=== PATIENT | female | born 1930 | race Caucasian/White ===

== ENCOUNTER 2021-01-29 16:13 | Emergency (ER) | payer MEDICARE ==
[~2021-01-29] VITALS: Ht 157.5 cm; Wt 92.3 kg
[~2021-01-29 16:13] MED LIST: AMLODIPINE BESYL5 MG PO; ARIMIDEX1 MG PO; BENICAR40 MG PO; COREG3.125 MG PO; COUMADIN2.5 MG PO; FUROSEMIDE20 MG PO; HYDRALAZINE HCL50 MG PO; HYDROCHLOROTHIA25 MG PO; LEVO-T100 MCG PO; MULTI-VITAMIN1 EACH PO; SERTRALINE HCL50 MG PO; TORSEMIDE5 MG PO; TRULICITY1.5 MG/0.5 SUB-Q; VALSARTAN160 MG PO
== END 2021-01-29 19:11 | disposition home or self-care (01) ==
LOC: ED 16:13
DX: U07.1 COVID-19 (principal); Z79.01 Long term (current) use of anticoagulants; Z79.899 Other long term (current) drug therapy
CPT/HCPCS: 99284-25; M0243; Q0244

== ENCOUNTER 2021-05-08 08:17 | Emergency (ER) | payer MEDICARE ==
[~2021-05-08] VITALS: Ht 157.5 cm; Wt 92.3 kg
[~2021-05-08 08:17] MED LIST changes: +WARFARIN SODIUM5 MG PO
--- NOTE | 2021-05-08 23:16 | EKG ---
[facility] [address] [facility] [place] [address] Signed Atrial fibrillation with slow ventricular response with premature ventricular or aberrantly conducted complexes Left axis deviation Nonspecific ST and T wave abnormality Abnormal ECG No previous ECGs available Confirmed by GAVIN ROMERO MD ([id number]) on 05/08/2021 11:15:49 PM Electronically Signed By: GAVIN ROMERO MD 05/08/21 2316 PATIENT NAME: CHARLEE CHAPPELL Electrocardiogram DATE OF : [birth year] PHYSICIAN: GAVIN ROMERO MD REPORT #: [id number] REPORT IS CONFIDENTIAL AND NOT TO BE RELEASED WITHOUT AUTHORIZATION
== END 2021-05-08 11:20 | disposition home or self-care (01) ==
LOC: ED 08:17
DX: I11.0 Hypertensive heart disease with heart failure (principal); I50.9 Heart failure, unspecified; Z20.822 Contact with and (suspected) exposure to COVID-19; I48.91 Unspecified atrial fibrillation; Z85.3 Personal history of malignant neoplasm of breast; Z79.899 Other long term (current) drug therapy; Z79.01 Long term (current) use of anticoagulants; Z79.890 Hormone replacement therapy
CPT/HCPCS: 71045; 80048; 83880; 84484; 85025; 85379; 93005; 93010; 96374; 99285-25; J1940; U0003

== ENCOUNTER 2022-03-22 11:35 | Inpatient (IN) | payer MEDICARE ==
[~2022-03-22] VITALS: Ht 157.5 cm; Wt 92.7 kg
[~2022-03-22 11:35] MED LIST changes: +TORSEMIDE10 MG PO
--- NOTE | 2022-03-22 14:10 | NUR ---
THIS RN TO ER TO RECEIVE REPORT AND RETRIVE PT. REPORT RECEIVED FROM JOHN BACON. TELEMETRY MONITORING PLACED. PT DENIES PAIN AND NASUEA. PT TRANSFERED TO MED/SURG BY THIS RN.
--- NOTE | 2022-03-22 14:42 | NUR ---
PT ARRIVED TO ROOM. PT TRANSFERED TO BED WITH 2 PERSON SLIDE SHEET/HOVER MAT ASSIST. PT DENIES PAIN AND NAUSEA. PT VERY SHORT OF BREATH WITH TRANSFER WITH RR UP TO 32-36. PT REMAINS ON 2L O2 BY NC WITH OXYGEN SATURATIONS ABOVE 94%. RR SLOWS TO 28 AFTER REST. ACCESSORY MUSCLE USE NOTED. PT HAS INCREASED SHORTNESS OF BREATH EVEN WITH DRINKING WATER. PT ALERT AND ORIENTED TO ALL. CMS INTACT. BMAT LEVEL 3 WITH FWW 2 PERSON ASSIST AND BED SIDE COMODE ONLY. LUNG SOUNDS COURSE IN BASES WITH EXIRATORY WHEEZES NOTED. OCCATIONAL COUGH NOTED. CONCRETE POURING SUPERVISOR SHOWS AFIB RYTHEM WITH HR IN THE 70'S. PT RESPORTS SHE DOES NOT FEEL SAFE AT HOME AND "I CAN'T TAKE CARE OF MYSELF." STATING SHE "MIGHT NEED SOME HELP." CASE MANAGEMENT CONSULT IN PLACE. PT RESTING IN BED. NO ADDITONAL NEEDS AT THIS TIME. CALL LIGHT WITHIN REACH. BED ALARM ON.
--- NOTE | 2022-03-22 15:24 | NUR ---
PT REPORTS NEED TO VOID. PT UP TO BEDSIDE COMODE WITH 2 PERSON ASSIST. PT VERY SHORT OF BREATH GETTING UP TO COMODE. RR UP TO 38, OXGYEN SATURATION MAINTAINS ABOVE 94%. GRUNTING NOTED, RETRACTIONS AND ACCESSORY MUSCLE USE NOTED. PT BACK TO BED WITH 2 PERSON ASSIST. HEAD OF BED ELEVATED 58 DEGEES. PT TAKES GREATER THAN 5 MINUTES TO RECOVER TO RR LESS THAN 30. RT CALLED FOR BREATHING TREATMENT. THIS RN REMAINS AT BEDSIDE FOR INTAKE ASSESSMENT.
--- NOTE | 2022-03-22 15:42 | NUR ---
RT TO BEDSIDE FOR BREATHING TREATMENT. PT RPEORTS HER BREATHING IS "BETTER." ACCESSORY MUSCLE USE CONTINUES. NO MORE RETRACTIONS NOTED. PT ORIENTED TO ROOM AND CALL LIGHT. COMB, TOOTHBRUSH, AND CHAPSTICK PROVIDED PER PT REQUEST. NO ADDIITONAL NEEDS AT THIS TIME. PT CONTIUES TO DENY PAIN AND NAUSEA. CALL LIGHT WITHIN REACH. BED RAILS UP. BED ALARM ON.
[2022-03-22] MEDS ORDERED: CLARITIN10 MG PO (16:42)
--- NOTE | 2022-03-22 16:42 | NUR ---
THIS RN TO ROOM TO CHECK ON PT. PT RESTING IN BED WITH HEAD OF BED ELEVATED TO 45 DEGREES. RESPIRATIONS EVEN AND LESS LABORED. MILD ACCESSORY MUSCLE USE NOTED. RR OF 24. PT REMAINS ON 2L O2 BY NC WITH OXGYEN SATURATION OF 98%. NO ADDITONAL NEEDS AT THIS TIME. CALL LIGHT WITHIN REACH. BED RAILS UP. BED ALARM ON.
--- NOTE | 2022-03-22 16:43 | NUR ---
MED REC COMPLETE
--- NOTE | 2022-03-22 17:07 | NUR ---
NEW ORDERS FROM DR. COON. THIS RN TO ROOM. TELEMETRY MONITORING DC'D. PT REQUESTS ASSISTANCE UP TO RESTROOM. 2 PERSON ASSIST UP TO BEDSIDE COMODE. PT UNSEADY, WOULD RECCOMDNE MEHUL STEADY IF ONLY ONE PERSON IS AVALIABLE TO ASSIST. PT WEANED TO ROOM AIR. PT DORPS TO 96% ON ROOM AIR WHILE GETTING UP. BREATHING BECOMES YET AGAIN VERY LABORED WITH RETRACTIONS AND RR 32-40. PT PLACED BACK ON 1L O2 BY NC. PT VOIDS AND HAS SMALL BOWEL MOVEMENT. BUSHRA CARE DONE. 2 PERSON ASSIST MARY CARMEN TO BED. PT RECOVERS TO 95% O2 ON 1L O2 BY NC. RR SLOWS TO 24. PT DENIES PAIN AND NAUSEA. NO ADDITIONAL REQUESTS OR COMPLAINTS. CALL LIGHT WITHIN REACH. BED RAILS UP. BED ALARM ON.
--- NOTE | 2022-03-22 17:28 | NUR ---
PATIENT IS ON ROOM AIR, OXYGEN SATS ARE 93-94%.
--- NOTE | 2022-03-22 18:27 | NUR ---
THIS RN TO ROOM TO CHECK ON PT. PT WORKING WITH TOOTH BRUSH FOR ORAL CARE. PT ASSISTED WITH REPOSITIONING IN BED AND BECOMES VERY SHORT OF BREATH WITH ACCESSORY MUSCLE USE AND RETRACTIONS, OXGYEN SATURATION REMAINS AT 94% ON ROOM AIR. PT TAKES 5-10 MINUTES TO RECOVER AND LOWER RESPIRATORY RATE TO 24. TEMPERATURE REASSESSED AND FOUND TO BE 98.3 ORALLY. PT DENIES PAIN AND NAUSEA. NO ADDITONAL REQUESTS OR COMPLAINTS. CALL LIGHT WITHIN REACH. BED ALARM ON. BED RAILS UP.
--- NOTE | 2022-03-22 18:34 | NUR ---
PT ADMITTED THIS SHIFT FOR RSV PNEUMONIA. PT UP WITH 2 PERSON ASSIST AND FWW TO COMODE, NEEDS MEHUL STEADY IF ONLY ONE PERSON IS AVALIABLE. TOLERATING 2G SODIUM DIET WITH MINIMAL APPITITE. TELEMETRY DC'D. PT REMAINS IN IRREGULAR RYTHEM. BLOOD PRESSURE ELEVATED WITH ORAL MEDICATION GIVEN. PT SEVERLY SHORT OF BREATH WITH ANY ACITIVITY INCLUDING RETRACTIONS, ACCESSORY MUSCLE USE, RR OF 30-40'S, AND ANXIETY. PT RECOVERS AFTER 5-10 MINUTES OF REST. PT WEANED TO ROOM AIR THIS SHIFT. TOLERATES WHILE RESTING, CONTINUES TO DESATURATE WITH ANY ACTIVITY. PT VOIDING QUANITTY SUFFICIENT, IV LASIX GIVEN. PT USES CALL LIGHT OCCATIONALLY, BED ALARM FOR SAFETY.
--- NOTE | 2022-03-22 19:15 | NUR ---
REPORT RECEIVED FROM DAY SHIFT RN. PT LYING IN BED RESTING WITH EYES CLOSED. RESPIRATIONS EVEN. BED ALARM FOR SAFETY. CALL LIGHT IN REACH.
--- NOTE | 2022-03-22 20:13 | NUR ---
PT. REQUESTED ASSISTANCE TO BSC. THIS DISPLAY AND BANNER DESIGNER AND RN ASSITED PT WITH TRANSFER. PT. TRANSFERRED BACK TO BED SUCCESSFULLY. PT. VITALS AND I/O CHARTED. CALL LIGHT LEFT WITHIN REACH. FRESH ICE WATER PROVIDED. NO OTHER IMMEDIATE NEEDS AT THIS TIME.
--- NOTE | 2022-03-22 21:29 | NUR ---
EVENING ASSESSMENT COMPLETE. SCHEDULED MEDS ADMIN PER EMAR. PT REPORTS CHEST/RIB PAIN 2/10 FROM COUGH. PRN FOR PAIN ADMIN. PT DENIES SOB AT REST. SpO2 MID 90'S ON RA WHILE AT REST. DENIES CHEST PAIN. ASSSITED TO REPOSITION IN BED. PT DENIES QUESTIONS OR CONCERNS. CALL LIGHT IN REACH. BED ALARM FOR SAFETY.
--- NOTE | 2022-03-22 22:05 | NUR ---
PT. CALLED NURSES STATION STATING THEY ARE COUGHING VERY HARD. AFTER CHECKING ON PT. THEY REQUESTED SOMETHING FOR THE COUGH. PT NURSE NOTIFIED IMMEDIATELY. NO OTHER NEEDS AT THIS TIME.
--- NOTE | 2022-03-22 22:17 | NUR ---
CALL LIGHT ANSWERED. PT REPORTS HAVING FALLEN ASLEEP ON HER BACK WHICH CAUSED MUCUS TO GET STUCK IN HER THROAT RESULTING IN A "COUGHING FIT" WHERE SHE FELT LIKE SHE COULD NOT CATCH HER BREATH. SPOT CHECK SpO2 MID 80'S ON RA. RESPIRATIONS 30'S. PT PLACED ON 2L/NC AND QUICKLY RECOVERED TO HIGH 90'S. ASSISTED PT TO REPOSITION TO SIDE PER REQUEST. RESPIRATIONS 22 AFTER PT ABLE TO RELAX. PT REQUESTING PRN FOR COUGH. DR. COON NOTIFIED. NEW ORDERS RECEIVED. PRN FOR COUGH ADMIN PER EMAR. PT RESTING ON LEFT SIDE AT THIS TIME. NO FURTHER NEEDS.
--- NOTE | 2022-03-22 23:08 | NUR ---
PT RESTING ON LEFT SIDE WITH EYES CLOSED. RESPIRATIONS EVEN. CALL LIGHT IN REACH.
--- NOTE | 2022-03-23 01:45 | NUR ---
CALL LIGHT ANSWERED. PT REPORTS COUGHING AND DIFFICULTY BREATHING. ASSISTED TO REPOSITION. HOB ELEVATED. SpO2 MID 90'S WITH 2L/NC IN PLACE. RR 28-32. RETRACTIONS NOTED. PT TRYING TO COUGH UP PHLEGM. REPORTS SHE FEELS "PANICKY WAKING UP IN A STRANGE ROOM" AND NOT BEING ABLE TO CLEAR PHLEGM. PT ABLE TO EXPRESS X 3 BROWN COLORED SPUTUM AFTER BREATHING TX AND COUGH SYRUP. THIS RN SPENT ABOUT 30 MIN IN ROOM COMFORTING AND REASSURING PT. PT THANKFUL FOR CARES. RESPIRATIONS DOWN TO 20-22. SLIGHT RETRACTIONS STILL NOTED. 2L/NC IN PLACE. SpO2 HIGH 90'S. PT LEFT RESTING ON BACK WITH BED IN CHAIR POSITION. CURTAINS OPEN SO PT CAN SEE STAFF. DENIES FURTHER NEEDS. BED ALARM FOR SAFETY. CALL LIGHT IN REACH.
--- NOTE | 2022-03-23 03:36 | NUR ---
PT RESTING WITH EYES CLOSED. HOB ELEVATED. RESPRATIONS EVEN. CALL LIGHT IN REACH.
--- NOTE | 2022-03-23 05:50 | NUR ---
CALL LIGHT ANSWERED. PT REPORTS COUGHING AND DIFFICULTY BREATHING. PT ON 2L/NC. SpO2 HIGH 90'S. RESPIRATIONS LOW 30'S. RETRACTIONS NOTED. PT REPORTS SHE "FEELS PANICKY" WHEN SHE STARTS COUGHING AND "CAN'T CATCH MY BREATH." PT REASSURED. 2PA TO REPOSITION IN BED WITH HOB ELEVATED. ENCOURAGED PT TO TAKE SLOW DEEP BREATHS. PT REPORTS IMPROVEMENT IN BREATHING. PRN FOR COUGH AND MORNING MEDS ADMIN PER EMAR. PT INCONTINENT OF LARGE AMOUNT OF URINE. BUSHRA CARE DONE BY STAFF. CLEAN BRIEF IN PLACE. PT REPOSITIONED TO SITTING POSITION IN BED. REPORTS SHE IS COMFORTABLE AT THIS TIME. OXYGEN TITRATED TO 1L/NC WITH SATS IN THE MID 90'S. LIGHTS ON AND CURTAIN OPEN PER PT REQUEST. BED ALARM FOR SAFETY. CALL LIGHT IN REACH.
--- NOTE | 2022-03-23 09:36 | NUR ---
IN FOR MORNING ASSESSMENT. PATIENT AWAKE IN BED, A&OX4. PATIENT REPORTS SHE IS SHORT OF BREATH. PT'S BED PLACED TO [facility] [place]. PATIENT'S SP02 READING IS CURRENTLY 93% ON 2L OXYGEN. PATIENT REPORTS HER SHORTNESS OF BREATH HAS IMPROVED SLIGHTLY SINCE YESTERDAY. PT HAS A NOTABLE PRODUCTIVE COUGH. RR 30/MIN, LABORED. PATIENT PROVIDED WITH MORNING MEDICATIONS WELL PRN TYLENOL 650MG PO AND TESSALON PERLES 100MG PO FOR COUGH/RIB PAIN. PATIENT'S BREAKFAST TO ROOM, PT REPORTS BEING HUNGRY AND EAGER TO EAT THIS AM. ENCOURAGED PATIENT TO GET UP IN CHAIR, SHE DECLINES AT THIS TIME REPORTING SHE IS "TOO WEAK". FRESH WATER AT BEDSIDE. PATIENT DENIES FURTHER NEEDS, PERSONAL SUPPLIES AND CALL LIGHT WITHIN REACH.
--- NOTE | 2022-03-23 12:00 | NUR ---
SITTING UP IN BED.PATIENT LIVES WITH SON AND DAUGHTER.FAMILY IS REQUESTING HELP WITH PATIENTS ADLS WHEN DISCHARGED. HAND OUT ON HOW TO HIRE A CAREGIVER WAS GIVEN TO PATIENT.
--- NOTE | 2022-03-23 12:40 | NUR ---
Admin Robitussin AC 5ML for reports of cough.
--- NOTE | 2022-03-23 15:14 | NUR ---
THIS TITLE SEARCHER IN TO DO VITALS AND I&O'S. PATIENT SAID SHE HAD VOIDED TWICE IN HER ATTENDS. THIS TITLE SEARCHER AND TITLE SEARCHER HECTOR STOOD PATIENT AT BED SIDE WITH A FWW TO CHANGE ATTENDS, DO BUSHRA CARE, AND CHANGE LINENS. PATIENT DID VERY WELL WITH 1PA AND MAINTAINED AN O2 LEVEL BETWEEN 96% AND 91% ON 1L OF OXYGEN. DR. COON IN ROOM TO TALK TO PATIENT WHILE SHE IS SITTING ON EDGE OF BED. PATIENT NOW BACK TO LAYING IN BED RESTING. CALL LIGHT IN REACH. NO FURTHER NEEDS AT THIS TIME.
--- NOTE | 2022-03-23 15:27 | NUR ---
AFTER GETTING IN BED, PATIENT DECIDED SHE WANTED TO SIT IN CHAIR. PATIENT TRANSFERED TO CHAIR, 1PA FWW. PATIENT DID VERY WELL WITH VERY LITTLE ASSIST. PATIENT SITTING UP IN CHAIR AT THIS TIME AND STATES "I FEEL SO MUCH BETTER BEING UP" CALL LIGHT IN REACH. NO FURTHER NEEDS AT THIS TIME.
--- NOTE | 2022-03-23 16:01 | NUR ---
PATIENT GIVEN AFTERNOON MEDICATION, HOT TEA WITH LEMON AND HONEY PROVIDED FOR COUGH. IMAGING IN TO TAKE PATIENT FOR CHEST XRAY.
--- NOTE | 2022-03-23 19:31 | NUR ---
Received report from offgoing shift, hourly rounding initiated.
--- NOTE | 2022-03-23 20:40 | NUR ---
CALL LIGHT ANSWERED, CURTAIN CLOSED PER pt REQUEST. SHORT TIME AFTER, pt CALLED AGAIN ASKING FOR TV REMOTE IT WAS "LOST IN BED". pt INSTRUCTED THAT PRIMARY RN WILL COME AND ASSIST WITH EVENING MED PASS AND ASSESSMENT, NO ADDITIONAL NEEDS.
--- NOTE | 2022-03-23 21:17 | NUR ---
ASSISTED pt WITH FINDING BED CONTROL WHICH WAS FOUND AT BEDSIDE IN REACH OF pt. CALL LIGHT, REMOTE CONTROL, AND BED CONTROL ALL WITHIN REACH, pt PROVIDED WITH THERAPEUTIC COMMUNICATION pt CAN BE ANXIOUS AT TIMES. NASAL CANNULA OUT OF NARES, REPOSITIONED AND NOW IN PLACE, 0.5LNC. pt SPOT CHECKED, SPO2 MID TO UPPER 90'S, HR 80'S. pt APPRECIATIVE OF CARES AND IS EDUCATED THAT PRIMARY RN KRISTINA WILL BE IN ROOM FOR MED PASS AND WILL BRING IN SOMETHING FOR A SORE THROAT PER pt REQUEST, CALL LIGHT IN REACH.
--- NOTE | 2022-03-23 22:41 | NUR ---
HOURLY ROUNDING COMPLETED, IN ROOM FOR ASSESSMENT, MEDICATION ADMINISTRATION
--- NOTE | 2022-03-24 03:03 | NUR ---
HOURLY ROUNDING - PT FOUND TO BE STRIPPED OF CLOTHING, STATING IT WAS "TOO HOT" IN THE ROOM. PT 02 VALUE CHECKED, FOUND TO BE 78 INITIALLY, PT REPOSITIONED, O2 TITRATED TO 2L NC AND HOB ELEVATED. PT 02 IMPROVED TO 95, REQUESTING RT FOR NEBULIZER TREATMENT
--- NOTE | 2022-03-24 06:18 | NUR ---
Pt calm and cooperative, able to make needs known. Pt shows signs of anxiety but is redirectable without incident, practicing deep breathing techniques and using "flutter" device to aid in breathing. Pt had nebulizer treatment x1 during the night to good effect. Pt medication compliant.
--- NOTE | 2022-03-24 07:25 | NUR ---
RECIEVED SHIFT REPORT. PT RESTING IN BED, CALL LIGHT WITHIN REACH
--- NOTE | 2022-03-24 07:40 | NUR ---
Reviewed pts chart. Faxed face sheet, H&P, progress notes, PT notes, RSV test to MICHAEL at [facility].
--- NOTE | 2022-03-24 08:33 | NUR ---
MORNING ASSESSMENT COMPLETE. PT IN RECLINER. DENIES PAIN AND NAUSEA. LUNG SOUNDS COURSE BILAT IN LOWER BASES, EXP. WHEEZE BILAT UPPER. REPRODUCTIVE COUGH WITH YELLOW SPUTUM. PT REINFORCED TO USE VIBRATHERAPY DEVICE. NO FURTHER NEEDS AT THIS TIME. CALL LIGHT WITHIN REACH.
--- NOTE | 2022-03-24 09:12 | NUR ---
PT sitting in chair after breakfast. Assisted PT to BSC then back to chair. Call light is within reach, PT has no other needs at this time.
--- NOTE | 2022-03-24 10:19 | NUR ---
PT is sitting in chair after breakfast. Vitals and I/O have been documented. Provided PT with fresh ice water. Call light is within reach, PT has no other needs at this time.
--- NOTE | 2022-03-24 14:28 | NUR ---
PT is sitting in chair. Vitals and I/O have been documented. I assisted PT to BSC and then back into chair. provided fresh ice water to PT, call light is within reach, PT has no other needs at this time.
--- NOTE | 2022-03-24 15:00 | NUR ---
Received a call from pts Vadim RUIZ. He states he has spoken with pt and she would like to go to a SNF. Let him know I was notified of they by Dr. Boyd after he spoke with pt today. I have sent her chart to [facility] and I am waiting to hear if they have a bed. If they do not, I will attempt to find the next closest. Discussed SNFs in the closest 4 towns. He requests I seek the closest to [place], but go wherever we can get a bed. He states pt lives in their downstairs and is needing increased help. Feels pt would benefit from therapy.
--- NOTE | 2022-03-24 16:00 | NUR ---
Spoke with Georgie. UPdated I have spoken with Vadim and Dr. Boyd. I have sent her chart to [facility] and I am waiting to hear if they have a bed. Also let her know I may have check SNFs farther away. She asks if repeatedly if she is leaving [facility] and I let her know it may be on the weekend of next week. It will depend on bed availability.
--- NOTE | 2022-03-24 16:30 | NUR ---
AFTERNOON ASSESSMENT COMPLETE. PT COMPLAINS OF RIGHT SIDE SORE THROAT, BUT REFUSES PRN MEDICATION. STATES "IT MAKES ME FEEL FUNNY, AND I CANT THINK STRAIGHT". LUNG SOUNDS COURSE BILAT IN LOWER BASES AND REQUESTED A NEB TREATMENT. PRODUCTIVE COUGH WITHOUT SPUTUM. DENIES ANY FURTHER NEEDS. IVF LR RUNNING AT 500 ML/HR. CALL LIGHT WITHIN REACH.
--- NOTE | 2022-03-24 16:39 | NUR ---
Received a text from . He is awaiting a call from [facility] as they do not have a policy for RSV. He will get back to us tomorrow.
--- NOTE | 2022-03-24 19:20 | NUR ---
Hourly rounding initiated, received report from offgoing shift.
--- NOTE | 2022-03-24 19:23 | EKG ---
[facility] [address] [facility] [place] [address] Signed Atrial fibrillation Nonspecific ST and T wave abnormality Abnormal ECG When compared with ECG of 08-MAY-2021 09:09, Nonspecific T wave abnormality has replaced inverted T waves in Inferior leads Nonspecific T wave abnormality, worse in Lateral leads Confirmed by JULISSA COON MD ([id number]) on 03/24/2022 7:22:56 PM Electronically Signed By: JULISSA COON MD 03/24/221922 PATIENT NAME: CHAPPELLREBEKAH Electrocardiogram DATE OF : [birth year] PHYSICIAN: JULISSA COON MD REPORT #: [id number] REPORT IS CONFIDENTIAL AND NOT TO BE RELEASED WITHOUT AUTHORIZATION
--- NOTE | 2022-03-24 23:04 | NUR ---
HOURLY ROUNDING, VS, ASSESSMENT - PT VS BP100/58 WITH PULSE 57-61/MIN. MD NOTIFIED DUE TO HOLDING BP MEDICATION. MD ORDERED ORTHOSTATIC VITAL SIGNS TO BE TAKEN. UPON COMPLETION MD ORDERED BOLUS OF LR AND RATE CHANGE ON CONTINUOUS. (SEE MAR)
--- NOTE | 2022-03-25 01:27 | NUR ---
hourly rounding, changed IV fluids
--- NOTE | 2022-03-25 03:21 | NUR ---
hourly rounding completed. Pt up to commode, minimal assistance required, Pt repositioned in bed
--- NOTE | 2022-03-25 04:47 | NUR ---
Hourly rounding - increased temperature in room at Pt request
--- NOTE | 2022-03-25 06:31 | NUR ---
Pt was calm and cooperative, able to make needs known. Pt had multiple attempts to urinate, no adequate output. Pt received bolus of LR 500ml, increased LR continuous to 125ml/hr fom 85ml/hr per MD order. Pt slept majority of the night, was medication compliant.
--- NOTE | 2022-03-25 06:41 | NUR ---
Pt output insufficient at 200ml for shift should have been closer to 523. MD notified, nor new orders at this time.
--- NOTE | 2022-03-25 07:15 | NUR ---
receieved shift report. pt in recliner, call light within reach.
--- NOTE | 2022-03-25 09:09 | NUR ---
MORNING ASSESSMENT COMPLETE. PT IN RECLINER ON 2L NC SPO2 100%, TITRATED TO RA. LUNG SOUNDS COURSE IN ALL LOBES. PRODUCTIVE WITHOUT SPUTUM. PT REINFORCED TO USE THE VIBRAPEP DEVICE. PT TRANSFERRED TO [facility]. SBA, FWW. SPO2 MAINTAINED 96% ON RA. ONCE RETURNED TO CHAIR SPO2 91% WITH DEEP BREATHING ENCOURAGED PT SPO2 INCREASED TO 98%. DENIES PAIN. CALLL LIGHT WITHIN REACH.
--- NOTE | 2022-03-25 09:11 | NUR ---
RECVD TEXT FROM JASON RN STATING THAT MICHAEL FROM [facility] WILL TURN THE PATIENTS CHART OVER TO NURSING FOR REVIEW. MICHAEL STATES THAT THEY WILL BE FOLLOWING THE 7 DAY QUARANTINE SO THEY PATIENT WOULD NEED TO REMAIN IN THE HOSPITAL UNTIL MONDAY.
--- NOTE | 2022-03-25 09:24 | NUR ---
PT FU MADE WITH VLADIMIR DOAN DUE TO DR. PHILLIPS NO LONGER PRACTICING AT THEIR OFFICE.
--- NOTE | 2022-03-25 11:20 | NUR ---
RECVD CALL BACK FROM BRYANT AT [facility] REQUESTING FURTHER DOCUMENTATION FOR POSSIBEL PLACEMENT. BRYANT STATES PATIENTS CHART WILL BE SENT TO THEIR ADMINISTRATION FOR REVIEW WHEN RECVD. CHART FAXED.
--- NOTE | 2022-03-25 11:29 | NUR ---
PATIENT IS SITTING IN CHAIR WATHCHING TV.THE PLAN OF CARE IS FOR [facility] PLACEMENT FOR REHAB. FAMILY IS IN AGREEMENT ON THIS CHOICE AT DISCHARGE.
--- NOTE | 2022-03-25 14:40 | NUR ---
PATIENT IN CHAIR AFTER MEAL. VITALS COMPLETED BY NURSES JOSÉ MIGUEL/CHATA. I/O'S COMPLETED BY THIS PHYSICAL EDUCATION SPECIALIST. PT HAS NO NEEDS AT THIS TIME. CALL LIGHT WITHIN REACH.
--- NOTE | 2022-03-25 15:19 | NUR ---
RECVD MESSAGE FROM MICHAEL AT [facility]. PATIENT HAS BEEN ACCEPTED TO [facility] AT THIS TIME AND THEY ARE AWAITING PRIOR AUTH FROM [place]. THEY PLAN TO ACCEPT HER ON MONDAY. SHORTLY AFTER RECVD CALL FROM BRYANT AT [facility], PATIENT HAS BEEN ACEEPTED AND APPROVED. IN TO SPEAK WITH THE PATIENT TO REVIEW HER PLACEMENT ACCEPTANCE. PATIENT WISH TO GO TO [facility] SHE WILL BE CLOSER TO FAMILY. CALL PATIENT SON IN LAW MICHAEL TO UPDATE THAT PATIENT WILL HOPEFULLY DISCHARGE TO [facility] ON MONDAY IF STABLE. NO CONCERNS OR QUESTIONS FROM THE PATIENT OR MICHAEL. SKYE RN UPDATED.
--- NOTE | 2022-03-25 15:30 | NUR ---
AFTERNOON ASSESSMENT COMPLETE. CURRENTLY ON ROOM AIR, SPO2 96%. WHEEZES HEARD BILAT UPPER LOBES, COURSE BILAT LOWER. CALLED RT FOR NEB TREATMENT. PT TRANSFERRED TO BED, SOB, SPO2 94% ON RA. PT ENCOURAGED TO TAKE DEEP BREATHS SPO2 INCREASED TO 98%. DENIES FURTHER NEEDS. STATES PAIN IN THE LEFT LOWER QUADRANT AND STATES FROM COUGHING, TOLERABLE. CALL LIGHT WITHIN REACH.
--- NOTE | 2022-03-25 19:18 | NUR ---
Hourly rounding initiated, received report from offgoing shift.
--- NOTE | 2022-03-25 21:45 | NUR ---
Hourly rounding -- pt assisted with gown and linen change due to blood on linens from earlier IV infiltration. Pt assisted with repositioning, assessment complete
--- NOTE | 2022-03-25 22:56 | NUR ---
hourly rounding, patient assisted with repositioning.
--- NOTE | 2022-03-26 01:24 | NUR ---
Pt exhibiting signs of respiratory distress, Crackles found throughout all lobes. Pt still not having any urinary output. Contacted MD and D/C'd IV fluids, inserted ashby catheter and administered 20mg IV lasix per MD order. Initial return 150ml, amarilys and clear.
--- NOTE | 2022-03-26 03:00 | NUR ---
In pt room for rounding - pt self-removed ashby catheter, balloon intact. Pt reported no pain, states she feels better without the catheter. Pt attempted to urinate at commode with no output, when cleaning noted trace amounts of blood on cleaning cloth. pt placed into bed without any further incident, brief in place
--- NOTE | 2022-03-26 03:23 | NUR ---
HOURLY ROUNDING - PT ASSISTED TO COMMODE, BACK TO BED WITH NO INCIDENT.
--- NOTE | 2022-03-26 03:25 | NUR ---
Pt exhibiting signs of forgetfulness. Pt is not sure where she is at, does not remember conversation had about interventions done, for example stating she did not a catheter was going to be placed, that she was in a hospital. Pt needing frequent reminders regarding where she is, what her oxygen tubing is for, that she needs to call the nurses station when it is time to use the commode.
--- NOTE | 2022-03-26 05:17 | NUR ---
HOURLY ROUNDING - PT UP TO SIDE OF BED, REQUESTED TOILETING. PT ASSISTED TO COMMODE, BACK TO BED WITHOUT INCIDENCE.
--- NOTE | 2022-03-26 07:05 | NUR ---
recieved shift report. resting in bed, call light within reach.
--- NOTE | 2022-03-26 08:34 | NUR ---
MORNING ASSESSMENT COMPLETE. PT TRANSFERRED TO COMMODE SBA, FWW. CRACKLES HEARD BILAT LOWER LOBES, COURSE BILAT UPPER. COUGH IS NONPRODUCTIVE, AND MOIST. ENCOURAGED TO USE VIBRAPEP. ON 1L NC SPO2 93%. BREATHING IRREGULAR, LABORED, TACHYPENIC, RR 22. COMPLAINS OF SORE THOAT AND GIVEN PRN CHLORASEPTIC CEPACOL. WEIGHED PT 92.7KG (BED). BREATHING TREATMENT ADMINISTERED BY RT. CALL LIGHT WITHIN REACH. DENIES FURTHER NEEDS.
--- NOTE | 2022-03-26 08:35 | NUR ---
PATIENT UP IN CHAIR THIS AM. NURSES DAISY AND CHATA HELPED PATIENT. CALL LIGHT WITHIN REACH.
--- NOTE | 2022-03-26 10:27 | NUR ---
IN ROOM GIVING MEDS. PT ENCOURAGED TO USE VIBRAPEP. CALL LIGHT WITHIN USE. DENIES FUTHER NEEDS.
--- NOTE | 2022-03-26 14:10 | NUR ---
PT WAVED NURSE DOWN WHEN WALKING BY ROOM. NEEDS TO USE RESTROOM. AMBLUATED WITH FWW STAND BY RAYMOND. PT DID HAVE SOB AFTER GETTING TO BATHROOM. UNABLE TO VOID. AMBULATED BACK TO CHAIR STILL SOB. O2 AT 1L NC SATURATIONS 93%. ENGOURAGED WOUGHING AND DEEP BREATHING.
--- NOTE | 2022-03-26 14:30 | NUR ---
PATIENT IN CHAIR AFTER MEAL. VITALS AND I/O'S COMPLETED. PT HAS NO OTHER NEEDS AT THIS TIME. CALL LIGHT WITHIN REACH.
--- NOTE | 2022-03-26 15:36 | NUR ---
AFTERNOON ASSESSEMENT COMPLETE. PT DENIES PAIN AT THIS TIME. LUNG SOUNDS COURSE BILAT IN ALL LOBES. PT CONTINUES TO HAVE A NONPRODUCTIVE MOIST COUGH. SPO2 99% ON 1.5L NC, RR 18. CALL LIGHT WITHIN REACH. BED ALARM ON. DENIES FURTHER NEEDS.
--- NOTE | 2022-03-26 18:04 | NUR ---
PATIENT IN BED AFTER MEAL. VITALS AND I/O'D COMPLETED. PT HAS NO OTHER NEEDS AT THIS TIME. BED ALARM SET. CALL LIGHT WITHIN REACH.
--- NOTE | 2022-03-26 21:35 | NUR ---
PT IS LAYING IN BED, VITALS AND I/O HAVE BEEN DOCUMENTED. FRESH ICE WATER WAS PROVIDED TO PT, CALL LIGHT IS WITHIN REACH. PT HAS NO OTHER NEEDS AT THIS TIME.
--- NOTE | 2022-03-26 22:20 | NUR ---
PT APPEARS TO BE SLEEPING AT THIS TIME, O2 INPLACE AND REMAINS AT 1.5L'S VIA NC AT THIS TIME. BED ALARM ON AND SIDE RAILS UP X 3
--- NOTE | 2022-03-26 23:49 | NUR ---
PT UP TO BEDSIDE COMMODE VOIDED AND BACK TO BED, SITTING UP USING IS AT THIS TIME. CONTIOUES TO BE WHEEZING, BUT COUGHING LESS. SITTING UP DRINKING SOME JUICE AND COMBING HER HAIR. O2 REMAINS AT 2LS.
--- NOTE | 2022-03-27 01:03 | NUR ---
REPORT FROM CHANCE LOEPZ, WHITE BOARD UPDATED, PT ON NC1.5L, IV SL, READY TO SLEEP, LIGHTS DIMMED, CALL LIGHT IN REACH.
--- NOTE | 2022-03-27 03:00 | NUR ---
pt coughing and sob, anxious - this rn in to pt room to bedside and enc. slow breathing and pursed lip breathing. pt resp slowed and she relaxed with rn coaching, sats 96% on 1.5L nc - rt called for tx.
--- NOTE | 2022-03-27 07:18 | NUR ---
RECIEVED SHIFT REPORT. RESTING IN BED, CALL LIGHT WITHIN REACH.
--- NOTE | 2022-03-27 09:06 | NUR ---
MORNING ASSESSMENT COMPLETE. PT TRANSFERRED TO CHAIR, SBA, FWW W/O DIFFICULTY. PT ON 1.5 L NC SPO2 100%. TITRATED TO 1L NC. LUNG SOUNDS BILAT UPPER LOBES WHEEZE AND COURSE, BILAT LOWER WHEEZE AND COURSE CRACKLES. [place], RR 22. PRODUCTIVE, MOIST COUGH, BUT NO SPUTUM NOTED. TRACE EDEMA NOTED BILAT LOWER EXT AND FEET. PT CONTIUNES TO USE VIBRAPEP AND WILL CONTIUNE TO ENCOURAGE. PT SOB, COMPLETES SHORT SENTENCES. DENIES PAIN, CALL LIGHT WITHIN REACH.
--- NOTE | 2022-03-27 16:55 | NUR ---
AFTERNOON ASSESSMENT COMPLETE. WHEEZING AND COURSE BILAT IN ALL LOBES. RT CALLED FOR NEB TREATMENT. DURING ACTIVITY PT SPO2 DESATS TO 88% ON RA. PLACED 1L NC, SPO2 96%. PRODUCTIVE, MOIST COUGH. UNABLE TO COUGH UP SECRETIONS. RR 20. PT PLACED BACK ON ROOM AIR ONCE BACK IN CHAIR SPO2 97%. TRACE EDEMA BILAT LOWER EXT. ENCOURAGED TO ELEVATE. CALL LIGHT WITHIN REACH.
--- NOTE | 2022-03-27 19:38 | NUR ---
REPORT RECEIVED FROM DAY SHIFT RN. PT LYING IN BED ALERT AND ORIENTED. DENIES NEEDS AT THIS TIME. CALL LIGHT IN REACH. WHITE BOARD UPDATED.
--- NOTE | 2022-03-27 21:30 | NUR ---
EVENING ASSESSMENT COMPLETE. SCHEDULED MEDS ADMIN PER EMAR. PT REPORTS LEFT HIP PAIN 08/31. PRN FOR PAIN ADMIN PER EMAR. PT UP TO SIDE OF BED TO REPOSITION. INCREASED RESPIRATIONS AND COUGH NOTED WITH ACTIVITY. PT UNABLE TO CLEAR SECRETIONS. LUNGS COARSE WITH WHEEZE THROUGHOUT. RT CALLED FOR PRN BREATHING TX. HOB ELEVATED. 1L/NC IN PLACE. SpO2 LOW 90'S WITH ACTIVITY. PT DENIES QUESTIONS OR CONCERNS. CALL LIGHT IN REACH. BED ALARM FOR SAFETY.
--- NOTE | 2022-03-28 00:45 | NUR ---
PT RESTING IN BED WITH EYES CLOSED. HOB ELEVATED. 1L/NC IN PLACE. OCCASIONAL COUGH NOTED. CALL LIGHT IN REACH.
--- NOTE | 2022-03-28 03:39 | NUR ---
PT RESTING IN BED WITH EYES CLOSED. RESPIRATIONS EVEN. CALL LIGHT IN REACH.
--- NOTE | 2022-03-28 05:03 | NUR ---
CALL LIGHT ANSWERED. PT UP TO BSC WITH FWW AND SBA TO VOID. STAFF ASSIST WITH [facility]. BACK TO BED. PT SOB AND HAS INCREASED COUGH WITH ACTIVITY. PT HAS DIFFICULTY CLEARING SECRETIONS. WHEEZES HEARD THROUGHOUT. O2 1L/NC IN PLACE. SpO2 LOW 90'S. RT IN ROOM FOR BREATHING TX.
--- NOTE | 2022-03-28 06:44 | NUR ---
SCHEDULED MED PROVIDED. NO OTHER NEEDS AT THIS TIME. CALL LIGHT IN REACH. RAILS UP.
--- NOTE | 2022-03-28 07:30 | NUR ---
THIS RN RECEIVED SHIFT REPORT FROM JOHN SAMAYOA. PATIENT RESTING QUIETLY IN LOW FOWLERS POSITION, EYES CLOSED, RESPIRATIONS ARE REGULAR AND EVEN, AND CALL IGHT IS IN REACH. PATIENT HAS NO NURSE CARE NEEDS AT THIS TIME.
--- NOTE | 2022-03-28 08:44 | NUR ---
THIS RN IN TO SEE PATIENT AND B/P HAS BEEN ELEVATED AND THIS RN INFORMED . JUST ASKED THAT THE GOT HER B/P MEDS AFTER HER VS WERE TAKEN AND THIS RN INSURED THE B/P MEDS WERE GIVEN.AM ASSESSMENT COMPLETE AND JUST CAME OUT FROM SEEING PATIENT. CALL LIGHT IN REACH AND PATIENT REMAINS UP IN THE BEDSIDEA RMCHAIR. PATIEN THAS NO OTHER CARE NEEDS AT THIS TIME.
--- NOTE | 2022-03-28 10:18 | NUR ---
PATIENT IN WORKING WITH OT AT THIS TIME WORKING WITH PATIENT.
[2022-03-28] MEDS ORDERED: TORSEMIDE5 MG PO (10:31)
[2022-03-28] MEDS ORDERED: BENZONATATE100 MG PO (10:31)
[2022-03-28] MEDS ORDERED: MUCINEX600 MG PO (10:32)
[2022-03-28] MEDS ORDERED: SORE THROAT LO1 EAC3 MM (10:32)
--- NOTE | 2022-03-28 12:00 | NUR ---
FAXED NEEDED DOCUMENTS TO [facility].STILL WAITNG FOR INSURANCE AUTH. PLAN OF CARE REMAINS THE SAME PATIENT WILL GO TO [place] ONCE AUTH.IS APPROVED.UPATIENTED PATIENT.
--- NOTE | 2022-03-28 16:10 | NUR ---
JUST TALKED WITH ADEBAYO FROM AND PATIENT IS GOING TO GO TO [place] PER [facility]. PATIENT IS A LITTLE ANXIOUS ABOUT GOING, BUT HAS ACCEPTED THE IDEA. REPORT BEING CALLED TO [facility] BY THIS RN. PATIENT'S BELONGINGS PACKED UP AND IV PULLLED AND READY TO LEAVE WITH [facility]. IV HAS BEEN PULLED INTACT AND ALL BELONGINGS SENT WITH PATIENT.
--- NOTE | 2022-03-28 16:11 | NUR ---
PATIENT AND FAMILY UPDATED THAT THE WHEEL [facility]I WILL BE HERE AT 4:30 TO TAKE THE PATIENT TO [facility]. PATIENT AND FAMILY UNDERSTAND THE DISCHARGE PLAN. NO QUESTIONS VOICED ABOUT THE DISCHARGE PLAN.
== END 2022-03-28 16:30 | DRG 193 ==
LOC: ED 11:35 → MS 14:01
PROVIDERS: ADMIT Internal Medicine; ATTEND Family Medicine
DX: J12.1 Respiratory syncytial virus pneumonia (principal); I50.23 Acute on chronic systolic (congestive) heart failure; I13.0 Hypertensive heart and chronic kidney disease with heart failure and stage 1 through stage 4 chronic kidney disease, or unspecified chronic kidney disease; I48.20 Chronic atrial fibrillation, unspecified; N17.9 Acute kidney failure, unspecified; N18.32 Chronic kidney disease, stage 3b; D63.8 Anemia in other chronic diseases classified elsewhere; Z85.3 Personal history of malignant neoplasm of breast; Z98.890 Other specified postprocedural states; Z79.899 Other long term (current) drug therapy; Z79.01 Long term (current) use of anticoagulants; Z96.641 Presence of right artificial hip joint; Z20.822 Contact with and (suspected) exposure to COVID-19
CPT/HCPCS: 36415; 71045; 71046; 80048; 80053; 82728; 83540; 83550; 83880; 84484; 85025; 85060; 85610; 86850; 86900; 86901; 86922; 87502; 93005; 93010; 94640; 94668; 94760; 94761; 97110; 97116; 97162; A9270; C9803; J1940; J7121; P9016; U0003